=== PATIENT | male | born 1945 | race Caucasian/White ===

== ENCOUNTER → 2020-06-06 10:56 | Outpatient (BNVA) | payer MEDICARE, BC, SELFPAY | PROVIDERS: PCP Internal Medicine; Referring Provider Internal Medicine; Visit Provider Hospitalist | DX: J44.9 Chronic obstructive pulmonary disease, unspecified (principal); J31.0 Chronic rhinitis | CPT/HCPCS: 99212 ==

== ENCOUNTER 2021-05-26 08:11 | Outpatient (REF) | payer MEDICARE, BC, SELFPAY ==
--- NOTE | 2021-05-26 17:12 | PFT_ITS ---
FLOWS: FEV1 101% of predicted at 3.19 L. FVC 108% of predicted at 4.71 L. FEV1 to FVC ratio of 0.68. No bronchodilator response except in small to medium airways. LUNG VOLUMES: Total lung capacity 111% of predicted at 8.10 L. Residual volume 142% of predicted at 3.75 L. Slow vital capacity 94% of predicted at 4.35 L. Expiratory reserve volume 37% of predicted at 0.48 L. Diffusion capacity is mildly decreased. IMPRESSION: Mild obstructive ventilatory defect with no bronchodilator response except in small to medium airways. Increased residual volume suggests air trapping. Decreased expiratory reserve volume suggests extrathoracic restriction likely secondary to abdominal obesity. Decreased diffusion capacity suggests emphysema. MD GURWINDER Candelaria/MODL / [id number]
== END 2021-05-26 08:12 | disposition home or self-care (01) ==
LOC: HO.RESP 08:11
PROVIDERS: PCP Internal Medicine; Visit Provider Hospitalist
DX: J44.9 Chronic obstructive pulmonary disease, unspecified (principal)
CPT/HCPCS: 94060; 94727; 94729

== ENCOUNTER → 2021-06-06 08:53 | Outpatient (BNVA) | payer MEDICARE, BC, SELFPAY | PROVIDERS: PCP Internal Medicine; Visit Provider Hospitalist | DX: J44.9 Chronic obstructive pulmonary disease, unspecified (principal); J31.0 Chronic rhinitis; K21.9 Gastro-esophageal reflux disease without esophagitis; R05.9 Cough, unspecified | CPT/HCPCS: 99212 ==

== ENCOUNTER → 2022-06-08 09:21 | Outpatient (BNVA) | payer MEDICARE, BC, SELFPAY | PROVIDERS: PCP Internal Medicine; Visit Provider Hospitalist | DX: J44.9 Chronic obstructive pulmonary disease, unspecified (principal); J31.0 Chronic rhinitis; K21.9 Gastro-esophageal reflux disease without esophagitis; J01.90 Acute sinusitis, unspecified | CPT/HCPCS: 99212 ==

== ENCOUNTER 2022-11-26 10:34 | Outpatient (REF) | payer MEDICARE, BC, SELFPAY ==
--- NOTE | ~2022-11-26 | XR_ITS ---
EXAMINATION: XR chest 2V CLINICAL INFORMATION: Reason for Exam J44.9 - Chronic obstructive pulmonary disease, unspecified COMPARISON: None TECHNIQUE: 2 views of the chest FINDINGS: Clear lungs. No pneumothorax or pleural effusion. Normal cardiomediastinal silhouette. XR/XR chest 2V Impression: No acute cardiopulmonary findings.
== END 2022-11-26 10:35 | disposition home or self-care (01) ==
LOC: HO.XRAY 10:34
PROVIDERS: PCP Internal Medicine; Visit Provider Hospitalist
DX: J44.9 Chronic obstructive pulmonary disease, unspecified (principal)
CPT/HCPCS: 71046

== ENCOUNTER → 2022-12-01 08:54 | Outpatient (BNVA) | payer MEDICARE, BC, SELFPAY | PROVIDERS: PCP Internal Medicine; Visit Provider Hospitalist | DX: J44.9 Chronic obstructive pulmonary disease, unspecified (principal); J31.0 Chronic rhinitis; R05.9 Cough, unspecified; K21.9 Gastro-esophageal reflux disease without esophagitis; Z23 Encounter for immunization | CPT/HCPCS: 90471; 90677; 99212 ==

== ENCOUNTER 2023-12-22 08:34 | Outpatient (AMB) | payer MEDICARE, BC, SELFPAY ==
--- NOTE | 2023-12-22 08:41 | MHC.OFFVIS ---
Vital Signs 12/22/23 08:42 Height 5 ft 11 in Weight 205 lb BMI 28.6 BP 120/60 Blood Pressure Location Lt brachial Position Sitting Pulse 72 Pulse Source Pulse Oximeter Pulse Oximetry (%) 98 Oxygen Delivery Method Room Air Intake Visit Reasons: asthma [facility] Consultant Required: No Allergies No Known Allergies Allergy (Verified 12/22/23 08:41) HPI Comments Details: The patient is a 78-year-old gentleman known history of COPD and chronic bronchitis. He has been doing phenomenally well. About a month ago he did develop a cough productive in nature with yellow sputum. It lasted for about 5-7 days. He did not take any medications for for the symptoms. The symptoms did improve by themselves. Right now he is not taking any respiratory inhalers. We did go back and look at previous x-rays that he had back in about a year ago. Didn't have any acute disease. Patient is without any other complaints period we talked about repeating an x-ray during his next visit. 06/07/2020 the patient is here for pulmonary follow-up visit. He continues to do very well. His shortness of breath and wheezing has improved dramatically. However he still has a cough which is a daily basis. Usually is nonproductive in nature. Does not seem to affect his quality of life at this time. He continues to use his nasal therapy. Usually the cough is worse in the morning. We did review his last chest x-ray demonstrating no acute disease. This x-ray was done at [facility]. Otherwise patient is without any other complaints. Will plan to follow-up in 1 years time with pulmonary function studies. 06/06/2021 the patient is here for a pulmonary follow-up visit. He started developing worsening cough which appears to be congested at times. Mqjc-ii-shyuvlnt severity. He has had to use his short-acting beta agonists couple times a week with good response. He did undergo pulmonary function studies demonstrating mild COPD. The patient had been on a very aggressive respiratory regimen in the past. But, then he improved and he was able to stop a lot of his maintenance medications. I believe is reasonable for him to start a maintenance inhaler at this time. 06/08/2022 the patient is here for a pulmonary follow-up visit. The patient had been doing well. Although recently he started developing worsening nasal congestion and postnasal drip along with cough. He has also noticed some yellow sputum. He is not sure if it is from the sinuses from the lungs. His lungs actually sound well. Recently he was prescribed Augmentin by ENT. He denies any significant improvement. He was told that he had any bacterial infection did not need any additional therapies. Therefore, will go ahead and place him on doxycycline to treat for other potential bacterial organisms that may have not been treated with the Augmentin. Patient also will benefit from nasal therapy. He does have postnasal drip. For the most part is thin secretions. This will improve with the use of ipratropium. However he knows that the mucus gets too thick needs to back off on the medication. He needs to have an x-ray has not had 1 in some time. His lungs sound clear he is responding well to the current respiratory therapy. Because of the coughing he is complaining of muscle spasms that he develops. He responded well to back of her in the past. did request a prescription. Therefore, I did let him know that I have prescribed 1 more time due to the fact that he is having they cough related muscle spasms but after that he should have it done all prescribed by his primary care doctor to avoid medication interaction and or polypharmacy. 12/01/2022 The patient is here for a pulmonary follow up visit. The patient has been doing well from a respiratory standpoint. HAs not had to use his inhalers at all. No resent exacerbations and has not required any antibiotics or prednisone for the last 6 months. He did have a CXR personally reviewed by me, demonstrating hyperexpanded lungs and a hiatal hernia suspected. We talked about the importance of the reflux diet and sleeping elevated to make sure to minimize GERD. The CXR is not officially read, if any any other findings I will let the patient know. 12/22/2023 the patient is here for a pulmonary follow-up visit. He is having significant allergies at this time. Mainly due to the springtime. Respiratory mauro he is doing well he does have his inhalers he does use them as needed. The patient did have a chest x-ray back in October 2022 demonstrating no acute disease which is reassuring. He is complaining of lower extremity edema. Seems to be more swollen the last week. Bilaterally. The patient had been on diuretics before but taken off because of hypernatremia. I will given 3 days' worth and then will recheck his sodium afterwards. In addition to that he has been dealing with skin cancer. He is status post surgical resection and also a brief course of radiation to make sure. [facility] Medical History (Updated 12/22/23 @ 22:18 by Miguel A Aldana MD) Lower extremity edema GERD (gastroesophageal reflux disease) Chronic rhinitis Cough COPD (chronic obstructive pulmonary disease) Social History (Updated 06/06/21 @ 09:04 by EPIFANIO Perez) Patient Tobacco Use Status: Never used Tobacco Review of Systems Const Denies night sweats ENT Denies change in voice, Denies lip swelling, Denies mouth pain, Reports nasal congestion, Denies nasal discharge, Reports post nasal drip, Denies sinus pressure and Denies tongue swelling Card Denies chest pain Resp Denies change in phlegm color, Reports cough and Denies wheezing GI Reports dyspepsia and Reports heartburn Musc Reports back pain Neuro Denies Neuro-related abnormal movements Psych Denies no additional complaints Luis/Lymph Denies easy bleeding and Denies lymphadenopathy Aller/Immun Denies lip swelling, Denies tongue swelling and Denies wheezing Physical Exam Vital Signs: Last Vital Signs Pulse 72 12/22/23 08:42 BP 120/60 12/22/23 08:42 Pulse Ox 98 12/22/23 08:42 Oxygen Delivery Method Room Air 12/22/23 08:42 BMI result Body Mass Index 28.6 Const General: alert HEENT General nose exam: Abnormal mucous membranes and turbinates present erythematous and Nasal discharge present clear Neck Neck: Yes normal visual inspection, Yes full ROM and Yes no lymphadenopathy Chest Chest palpation & inspection: normal inspection of the chest Resp Auscultation: diminished lung sounds Cardio Rate: regular rate Rhythm: regular rhythm Heart sounds: S1 normal heart sound present and S2 normal heart sound present GI Palpation (GI): Soft to palpation and nontender Auscultation: normal bowel sounds Skin General skin exam: rashes and/or lesions noted Assessment & Plan Assessment & Plan (1) COPD (chronic obstructive pulmonary disease): Code(s): J44.9 - Chronic obstructive pulmonary disease, unspecified Category: Medical Qualifiers: COPD type: chronic bronchitis Chronic bronchitis type: simple Qualified Code(s): J41.0 - Simple chronic bronchitis Plan: Short-acting beta agonist as needed (2) Cough: Comment: Likely upper airway cough syndrome Code(s): R05 - Cough Category: Medical Qualifiers: Cough type: chronic Qualified Code(s): R05.3 - Chronic cough (3) Chronic rhinitis: Code(s): J31.0 - Chronic rhinitis Category: Medical Plan: Nasal therapy Nasal rinsing Allergy therapy (4) GERD (gastroesophageal reflux disease): Code(s): K21.9 - Gastro-esophageal reflux disease without esophagitis Category: Medical Qualifiers: Esophagitis presence: without esophagitis Qualified Code(s): K21.9 - Gastro-esophageal reflux disease without esophagitis (5) Lower extremity edema: Code(s): R60.0 - Localized edema Category: Medical Plan continue Dulera CAIO as needed fluticasone nasal spray as needed Ipratropium nasal spray as needed start singulair lasix x 3 days only recheck labs F/U 10-12 months Orders: Orders Complete Blood Count Auto Diff Today J44.9 - Chronic obstructive pulmonary disease, unspecified, R05 - Cough Immunoglobulin E Today J44.9 - Chronic obstructive pulmonary disease, unspecified, R05 - Cough Basic Metabolic Panel Today J44.9 - Chronic obstructive pulmonary disease, unspecified, R05 - Cough Medications: New furosemide (Lasix) 20 mg PO DAILY 3 tabs 0RF 3 days montelukast (Singulair) 10 mg PO BEDTIME 30 tabs 11RF 30 days J45.909 - Unspecified asthma, uncomplicated Coding Level of Care Code Est Pt Level 4 (79190) Diagnoses Simple chronic bronchitis J41.0 COPD type: chronic bronchitis Chronic bronchitis type: simple Chronic cough R05.3 Cough type: chronic Chronic rhinitis J31.0 Gastroesophageal reflux disease without esophagitis K21.9 Esophagitis presence: without esophagitis Lower extremity edema R60.0 Time Spent (min) 16
[2023-12-22 08:42] VITALS: BP 120/60; PULSE 72; O2SAT 98; BMI 28.6
== END 2023-12-22 09:00 | disposition home or self-care (01) ==
PROVIDERS: PCP Internal Medicine; Visit Provider Hospitalist
DX: J41.0 Simple chronic bronchitis (principal); J31.0 Chronic rhinitis; K21.9 Gastro-esophageal reflux disease without esophagitis; R60.0 Localized edema
CPT/HCPCS: 99214

== ENCOUNTER → 2023-12-22 08:34 | Outpatient (BNVA) | payer MEDICARE, BC, SELFPAY | PROVIDERS: PCP Internal Medicine; Visit Provider Hospitalist | DX: J41.0 Simple chronic bronchitis (principal); J31.0 Chronic rhinitis; K21.9 Gastro-esophageal reflux disease without esophagitis; R60.0 Localized edema | CPT/HCPCS: 99212 ==

== ENCOUNTER 2024-06-23 10:57 | Outpatient (REF) | payer MEDICARE, BC, SELFPAY ==
[2024-06-23 11:15] LABS: MANUAL DIFF FLAG NO
[2024-06-23 11:41] LABS: Basophils Absolute Auto 0.1 X10*3/uL (0.0-0.2); Basophils Percent Auto 0.7 % (0-2); Eosinophils Absolute Auto 0.1 X10*3/uL (0.0-0.4); Hematocrit 43.8 % (42.0-52.0); Hemoglobin 15.5 g/dl (14.0-18.0); Imm Gran Abs Auto 0.02 X10*3/uL (0.00-0.03); Imm Gran Pct Auto 0.3 % (0.0-0.4); Lymphocytes Absolute Auto 0.7 X10*3/uL (1.2-4.9); Lymphocytes Percent Auto 10.7 % (20-40); Mean Corpuscular HGB Conc 35.4 g/dl (31.0-36.0); Mean Corpuscular Volume 96.1 fL (80.0-98.0); Mean Platelet Volume 8.6 fL (9.4-12.4); Monocytes Absolute Auto 0.8 X10*3/uL (0.1-1.2); Monocytes Percent Auto 11.3 % (2-11); Neutrophils Absolute Auto 5.3 x10*3/uL (2.0-8.3); Platelet Count 239 X10*3/uL (160-400); Red Blood Count 4.56 X10*6/uL (4.60-5.80); Red Cell Distribution Width 12.2 % (11.0-16.0); White Blood Count 6.9 X10*3/uL (4.8-10.8)
[2024-06-23 12:09] LABS: Anion Gap 13 (12-20); Blood Urea Nitrogen 8 mg/dL (9-16); Calcium 9.3 mg/dL (8.4-10.2); Carbon Dioxide 28 mmol/L (22-29); Chloride 98 mmol/L (96-108); Estimated Glomerular Filt Rate > 60; Glucose Random 105 mg/dL (60-115); Potassium 3.8 mmol/L (3.3-5.1); Sodium 135 mmol/L (135-145)
[2024-06-27 02:08] LABS: Immunoglobulin E 55 kU/L (<OR=114)
== END 2024-06-23 10:58 | disposition home or self-care (01) ==
LOC: HO.LAB 10:57
PROVIDERS: PCP Internal Medicine; Visit Provider Hospitalist
DX: J44.9 Chronic obstructive pulmonary disease, unspecified (principal); R05.9 Cough, unspecified
CPT/HCPCS: 36415; 80048; 82785; 85025

== ENCOUNTER → 2024-06-26 08:38 | Outpatient (BNVA) | payer MEDICARE, BC, SELFPAY | PROVIDERS: PCP Internal Medicine; Visit Provider Hospitalist | DX: J41.0 Simple chronic bronchitis (principal); J31.0 Chronic rhinitis; K21.9 Gastro-esophageal reflux disease without esophagitis; R60.0 Localized edema | CPT/HCPCS: 99212 ==

== ENCOUNTER 2024-06-26 08:45 | Outpatient (AMB) | payer MEDICARE, BC, SELFPAY ==
[2024-06-26 08:47] VITALS: BP 162/62; PULSE 84; O2SAT 97
--- NOTE | 2024-06-26 08:47 | A.OFFVIS_ITS ---
Vital Signs 06/26/24 08:47 Weight 200 lb 9.93 oz BP 162/62 H Blood Pressure Location Rt brachial Position Sitting Pulse 84 Pulse Source Pulse Oximeter Pulse Oximetry (%) 97 Oxygen Delivery Method Room Air Intake Visit Reasons: Asthma Allergies No Known Allergies Allergy (Verified 06/26/24 08:51) Medication List - Last Reconciled 06/26/24 by Pinky Naik LPN albuterol sulfate 90 mcg/actuation (ProAir HFA) 2 puffs inhalation Q6H PRN amlodipine 7.5 mg PO DAILY flu vac qv 2019(18yr up)rc(PF) IM fluticasone propionate 50 mcg/actuation 2 sprays intranasal DAILY 30 days losartan 100 mg PO DAILY melatonin 10 mg PO BEDTIME PRN montelukast (Singulair) 10 mg PO BEDTIME 30 days HPI Comments Details: The patient is a 79-year-old gentleman known history of COPD and chronic bronchitis. He has been doing phenomenally well. About a month ago he did develop a cough productive in nature with yellow sputum. It lasted for about 5-7 days. He did not take any medications for for the symptoms. The symptoms did improve by themselves. Right now he is not taking any respiratory inhalers. We did go back and look at previous x-rays that he had back in about a year ago. Didn't have any acute disease. Patient is without any other complaints period we talked about repeating an x-ray during his next visit. 06/07/2020 the patient is here for pulmonary follow-up visit. He continues to do very well. His shortness of breath and wheezing has improved dramatically. However he still has a cough which is a daily basis. Usually is nonproductive in nature. Does not seem to affect his quality of life at this time. He continues to use his nasal therapy. Usually the cough is worse in the morning. We did review his last chest x-ray demonstrating no acute disease. This x-ray was done at [facility]. Otherwise patient is without any other complaints. Will plan to follow-up in 1 years time with pulmonary function studies. 06/06/2021 the patient is here for a pulmonary follow-up visit. He started developing worsening cough which appears to be congested at times. Naxy-wz-ieayqomr severity. He has had to use his short-acting beta agonists couple times a week with good response. He did undergo pulmonary function studies demonstrating mild COPD. The patient had been on a very aggressive respiratory regimen in the past. But, then he improved and he was able to stop a lot of his maintenance medications. I believe is reasonable for him to start a maintenance inhaler at this time. 06/08/2022 the patient is here for a pulmonary follow-up visit. The patient had been doing well. Although recently he started developing worsening nasal congestion and postnasal drip along with cough. He has also noticed some yellow sputum. He is not sure if it is from the sinuses from the lungs. His lungs actually sound well. Recently he was prescribed Augmentin by ENT. He denies any significant improvement. He was told that he had any bacterial infection did not need any additional therapies. Therefore, will go ahead and place him on doxycycline to treat for other potential bacterial organisms that may have not been treated with the Augmentin. Patient also will benefit from nasal therapy. He does have postnasal drip. For the most part is thin secretions. This will improve with the use of ipratropium. However he knows th at the mucus gets too thick needs to back off on the medication. He needs to have an x-ray has not had 1 in some time. His lungs sound clear he is responding well to the current respiratory therapy. Because of the coughing he is complaining of muscle spasms that he develops. He responded well to back of her in the past. did request a prescription. Therefore, I did let him know that I have prescribed 1 more time due to the fact that he is having they cough related muscle spasms but after that he should have it done all prescribed by his primary care doctor to avoid medication interaction and or polypharmacy. 12/01/2022 The patient is here for a pulmonary follow up visit. The patient has been doing well from a respiratory standpoint. HAs not had to use his inhalers at all. No resent exacerbations and has not required any antibiotics or prednisone for the last 6 months. He did have a CXR personally reviewed by me, demonstrating hyperexpanded lungs and a hiatal hernia suspected. We talked about the importance of the reflux diet and sleeping elevated to make sure to minimize GERD. The CXR is not officially read, if any any other findings I will let the patient know. 12/22/2023 the patient is here for a pulmonary follow-up visit. He is having significant allergies at this time. Mainly due to the springtime. Respiratory mauro he is doing well he does have his inhalers he does use them as needed. The patient did have a chest x-ray back in October 2022 demonstrating no acute disease which is reassuring. He is complaining of lower extremity edema. Seems to be more swollen the last week. Bilaterally. The patient had been on diuretics before but taken off because of hypernatremia. I will given 3 days' worth and then will recheck his sodium afterwards. In addition to that he has been dealing with skin cancer. He is status post surgical resection and also a brief course of radiation to make sure. 06/26/2024 the patient is here for a pulmonary follow-up visit. The patient has been feeling better. He did call in several weeks ago worsening respiratory symptoms cough chest congestion. He was treated with a Z-Michael in addition to a Medrol pack. Now he is back to the baseline. He had been using nebulizer 2 but now is no longer using it. Feel that he is back to his baseline. He did have blood work done including a CBC with a decrease lymphocyte count. This may be related to a whenever viral syndrome he was having may have affected his lymphocytes. This should be rechecked at some point. In addition to that were waiting for his IgE levels to come back. He had an x-ray back in 2022 which is reassuring. His respiratory exam is normal at this time so no additional imaging isn't required. Although if he starts developing worsening symptoms he will come in for an x-ray. [facility] Medical History (Updated 12/22/23 @ 22:18 by Miguel A Aldana MD) Lower extremity edema GERD (gastroesophageal reflux disease) Chronic rhinitis Cough COPD (chronic obstructive pulmonary disease) Social History (Updated 06/06/21 @ 09:04 by EPIFANIO Perez) Patient Tobacco Use Status: Never used Tobacco Review of Systems Const Denies night sweats ENT Denies change in voice, Denies lip swelling, Denies mouth pain, Reports nasal congestion, Denies nasal discharge, Reports post nasal drip, Denies sinus pressure and Denies tongue swelling Card Denies chest pain Resp Denies change in phlegm color, Reports cough and Denies wheezing GI Reports dyspepsia and Reports heartburn Musc Reports back pain Neuro Denies Neuro-related abnormal movements Psych Denies no additional complaints Luis/Lymph Denies easy bleeding and Denies lymphadenopathy Aller/Immun Denies lip swelling, Denies tongue swelling and Denies wheezing Physical Exam Vital Signs: Last Vital Signs Pulse 84 06/26/24 08:47 BP 162/62 H 06/26/24 08:47 Pulse Ox 97 06/26/24 08:47 Oxygen Delivery Method Room Air 06/26/24 08:47 Const General: alert HEENT General nose exam: Abnormal mucous membranes and turbinates present erythematous and Nasal discharge present clear Neck Neck: Yes normal visual inspection, Yes full ROM and Yes no lymphadenopathy Chest Chest palpation & inspection: normal inspection of the chest Resp Auscultation: diminished lung sounds Cardio Rate: regular rate Rhythm: regular rhythm Heart sounds: S1 normal heart sound present and S2 normal heart sound present GI Palpation (GI): Soft to palpation and nontender Auscultation: normal bowel sounds Skin General skin exam: rashes and/or lesions noted Assessment & Plan Assessment & Plan (1) COPD (chronic obstructive pulmonary disease): Code(s): J44.9 - Chronic obstructive pulmonary disease, unspecified Category: Medical Qualifiers: COPD type: chronic bronchitis Chronic bronchitis type: simple Qualified Code(s): J41.0 - Simple chronic bronchitis Plan: Short-acting beta agonist as needed (2) Cough: Comment: Likely upper airway cough syndrome Code(s): R05 - Cough Category: Medical Qualifiers: Cough type: chronic Qualified Code(s): R05.3 - Chronic cough (3) Chronic rhinitis: Code(s): J31.0 - Chronic rhinitis Category: Medical Plan: Nasal therapy Nasal rinsing Allergy therapy (4) GERD (gastroesophageal reflux disease): Code(s): K21.9 - Gastro-esophageal reflux disease without esophagitis Category: Medical Qualifiers: Esophagitis presence: without esophagitis Qualified Code(s): K21.9 - Gastro-esophageal reflux disease without esophagitis (5) Lower extremity edema: Code(s): R60.0 - Localized edema Category: Medical Plan continue Dulera CAIO as needed fluticasone nasal spray as needed Ipratropium nasal spray as needed singulair F/U 10-12 months Coding Level of Care Code Est Pt Level 4 (27910) Diagnoses Simple chronic bronchitis J41.0 COPD type: chronic bronchitis Chronic bronchitis type: simple Chronic cough R05.3 Cough type: chronic Chronic rhinitis J31.0 Gastroesophageal reflux disease without esophagitis K21.9 Esophagitis presence: without esophagitis Lower extremity edema R60.0 Time Spent (min) 16
== END 2024-06-26 09:09 | disposition home or self-care (01) ==
PROVIDERS: PCP Internal Medicine; Visit Provider Hospitalist
DX: J41.0 Simple chronic bronchitis (principal); J31.0 Chronic rhinitis; K21.9 Gastro-esophageal reflux disease without esophagitis; R60.0 Localized edema
CPT/HCPCS: 99214

== ENCOUNTER 2024-12-14 08:48 | Outpatient (AMB) | payer MEDICARE, BC, SELFPAY ==
--- NOTE | 2024-12-14 09:00 | A.OFFVIS_ITS ---
Vital Signs 12/14/24 09:01 Height 5 ft 11 in Weight 210 lb 8.663 oz BMI 29.4 BP 140/68 H Blood Pressure Location Lt brachial Position Sitting Pulse 78 Pulse Source Pulse Oximeter Pulse Oximetry (%) 97 Oxygen Delivery Method Room Air Intake Visit Reasons: Asthma Cereal Maker Required: No Accompanied by: Self / Same As Patient Allergies No Known Allergies Allergy (Verified 12/14/24 09:03) HPI Comments Details: The patient is a 79-year-old gentleman known history of COPD and chronic bronchitis. He has been doing phenomenally well. About a month ago he did develop a cough productive in nature with yellow sputum. It lasted for about 5-7 days. He did not take any medications for for the symptoms. The symptoms did improve by themselves. Right now he is not taking any respiratory inhalers. We did go back and look at previous x-rays that he had back in about a year ago. Didn't have any acute disease. Patient is without any other complaints period we talked about repeating an x-ray during his next visit. 12/22/2023 the patient is here for a pulmonary follow-up visit. He is having significant allergies at this time. Mainly due to the springtime. Respiratory mauro he is doing well he does have his inhalers he does use them as needed. The patient did have a chest x-ray back in October 2022 demonstrating no acute disease which is reassuring. He is complaining of lower extremity edema. Seems to be more swollen the last week. Bilaterally. The patient had been on diuretics before but taken off because of hypernatremia. I will given 3 days' worth and then will recheck his sodium afterwards. In addition to that he has been dealing with skin cancer. He is status post surgical resection and also a brief course of radiation to make sure. 06/26/2024 the patient is here for a pulmonary follow-up visit. The patient has been feeling better. He did call in several weeks ago worsening respiratory symptoms cough chest congestion. He was treated with a Z-Michael in addition to a Medrol pack. Now he is back to the baseline. He had been using nebulizer 2 but now is no longer using it. Feel that he is back to his baseline. He did have blood work done including a CBC with a decrease lymphocyte count. This may be related to a whenever viral syndrome he was having may have affected his lymphocytes. This should be rechecked at some point. In addition to that were waiting for his IgE levels to come back. He had an x-ray back in 2022 which is reassuring. His respiratory exam is normal at this time so no additional imaging isn't required. Although if he starts developing worsening symptoms he will come in for an x-ray. 12/14/2024 the patient is here for pulmonary follow-up visit. The patient overall has been doing well from a respiratory status. He continues uses allergy medicines and also nasal sprays because of the allergy season right now. But overall he has been doing well. Denies any respiratory limitations. He does use respiratory inhalers as prescribed. Has not required any prednisone. Typically does not use his rescue inhaler. He has been a little more the conditions and he has not been exercising as much. He is going to start doing so. Although right now is major complaint of significant lower extremity edema. Recently had a visit with his padded products inspector trimmer in his Norvasc was increased from 5 mg 10 mg. Explained to him that this is something that needs to talk to his padded products inspector trimmer because medications likely worsening the lower extremity edema. He may need to go back to the lower dose. Therefore the patient will have an x-ray before his next visit and will follow-up in a year's time. [facility] Medical History (Updated 12/22/23 @ 22:18 by Miguel A Aldana MD) Lower extremity edema GERD (gastroesophageal reflux disease) Chronic rhinitis Cough COPD (chronic obstructive pulmonary disease) Social History Patient Tobacco Use Status: Never used Tobacco Review of Systems Const Denies chills, Denies fatigue, Denies fever(s), Denies weight gain and Denies weight loss ENT Denies dizziness, Denies lip swelling and Denies tongue swelling Card Denies chest pain, Reports leg edema, Denies lightheadedness, Denies palpitations, Denies dyspnea on exertion, Denies orthopnea and Denies other Resp Reports cough, Denies dyspnea on exertion and Denies wheezing GI Denies hematochezia and Denies change in stool character Musc Denies abnormal gait, Denies muscle weakness, Denies numbness, Denies radiating pain into limb and Denies tingling Neuro Denies abnormal gait, Denies dizziness, Denies numbness and Denies tingling Psych Denies no additional complaints Endo Denies fatigue and Denies palpitations Luis/Lymph Denies easy bleeding and Denies lymphadenopathy Aller/Immun Denies lip swelling, Denies tongue swelling and Denies wheezing Physical Exam Vital Signs: Last Vital Signs Pulse 78 12/14/24 09:01 BP 140/68 H 12/14/24 09:01 Pulse Ox 97 12/14/24 09:01 Oxygen Delivery Method Room Air 12/14/24 09:01 BMI result Body Mass Index 29.4 Const General: alert HEENT General nose exam: Abnormal mucous membranes and turbinates present erythematous and Nasal discharge present clear Neck Neck: Yes normal visual inspection, Yes full ROM and Yes no lymphadenopathy Chest Chest palpation & inspection: normal inspection of the chest Resp Auscultation: diminished lung sounds Cardio Rate: regular rate Rhythm: regular rhythm Heart sounds: S1 normal heart sound present and S2 normal heart sound present GI Palpation (GI): Soft to palpation and nontender Auscultation: normal bowel sounds Skin General skin exam: no rashes or lesions noted Extrem General: No clubbing, No cyanosis and Yes edema Assessment & Plan Assessment & Plan (1) COPD (chronic obstructive pulmonary disease): Code(s): J44.9 - Chronic obstructive pulmonary disease, unspecified Category: Medical Qualifiers: COPD type: chronic bronchitis Chronic bronchitis type: simple Qualified Code(s): J41.0 - Simple chronic bronchitis Plan: Short-acting beta agonist as needed (2) Cough: Comment: Likely upper airway cough syndrome Code(s): R05 - Cough Category: Medical Qualifiers: Cough type: chronic Qualified Code(s): R05.3 - Chronic cough (3) Chronic rhinitis: Code(s): J31.0 - Chronic rhinitis Category: Medical Plan: Nasal therapy Nasal rinsing Allergy therapy (4) GERD (gastroesophageal reflux disease): Code(s): K21.9 - Gastro-esophageal reflux disease without esophagitis Category: Medical Qualifiers: Esophagitis presence: without esophagitis Qualified Code(s): K21.9 - Gastro-esophageal reflux disease without esophagitis (5) Lower extremity edema: Code(s): R60.0 - Localized edema Category: Medical Plan continue Dulera CAIO as needed fluticasone nasal spray as needed Ipratropium nasal spray as needed singulair d/w PCP/nephrology regarding CCB side effect F/U 10-12 months Coding Level of Care Code Est Pt Level 4 (55319) Diagnoses Simple chronic bronchitis J41.0 COPD type: chronic bronchitis Chronic bronchitis type: simple Chronic cough R05.3 Cough type: chronic Chronic rhinitis J31.0 Gastroesophageal reflux disease without esophagitis K21.9 Esophagitis presence: without esophagitis Lower extremity edema R60.0 Time Spent (min) 16
[2024-12-14 09:01] VITALS: BP 140/68; PULSE 78; O2SAT 97; BMI 29.4
--- OUTSIDE RECORDS SUMMARY | 2024-12-14 09:14 | XMS_ITS | Clinical Summary ---
Author Organization [facility] Address [address] [place] [address] Phone Care Team Providers Care Sleeve Baster Name Role Phone Otoniel Gusman MD Primary Care Provider [phone] Allergies Active Allergy Reactions Criticality Noted Date Comments Cat Dander 03/12/2023 Grass Pollen Standardized Ext 2022 Medications losartan (COZAAR) 100 MG tablet Take 100 mg by mouth 1 (one) time each day Active celecoxib (CeleBREX) 200 MG capsule Take 200 mg by mouth if needed Active melatonin 3 MG tablet Take 1 mg by mouth every night Active ibuprofen (ADVIL,MOTRIN) 200 MG tablet Take 200 mg by mouth every 6 (six) hours if needed for mild pain Active amLODIPine (NORVASC) 10 MG tablet Take 1 tablet (10 mg total) by mouth 1 (one) time each day 90 tablet 3 5 02/14/20 25 Active amLODIPine (NORVASC) 5 MG tablet TAKE 1.5 TABLET (7.5 MG) BY MOUTH DAILY 135 tablet 3 5 Active amLODIPine (NORVASC) 5 MG tablet TAKE 1 TABLET BY MOUTH 1 TIME EACH DAY. 90 tablet 3 4 11/16/19 25 Discontinu ed(Reorder (does not appear on AVS)) Active Problems Problem Noted Date Diagnosed Date Hypo-osmolality and hyponatremia 10/28/2021 Hypertension 10/28/2021 Allergic rhinitis 10/26/2017 History of pneumonia 10/26/2017 Overview (05/02/2024): Replacing diagnoses that were inactivated after the 05/02/24 Regulatory Import Asthma 06/11/2017 Chronic obstructive pulmonary disease 06/11/2017 Bronchiectasis 05/09/2017 Encounters Date Type Department Care Team Description 11/17/2024 Refill [facility] [address] [address] Mesfin Sarah MD 11/15/2024 1:30 PM EDT Office Visit [facility] [address] [address] Mesfin Sarah MD Hypo-osmolality and hyponatremia (Primary Dx); Hypokalemia; Hypertension; Chronic kidney disease, not otherwise specified 11/02/2024 Orders Only [facility] [address] [address] Mesfin Sarah MD Hypo-osmolality and hyponatremia from Last 3 Months Immunizations Immunization Administration Dates Next Due Influenza Split High Dose Preservative Free IM 1 08/27/2018 Influenza Vaccine, Quadrivalent, Adjuvanted 04/02 Influenza, Recombinant, Quadrivalent, Pf 020 Influenza, Trivalent, Adjuvanted 05/26/2018 Family History Medical History Relation Comments Diabetes Father Hypertension Mother Relation Status Comments Father Mother Social History Tobacco Use Types Packs/Day Years Used Date Smoking Tobacco: Never Passive Smoke Exposure: Never Smokeless Tobacco: Never Tobacco Cessation:Counseling Given: No Alcohol Use Standard Drinks/Week Comments Yes 0 (1 standard drink = 0.6 oz pur e alcohol) Sex and Gender Information Value Date Recorded Sex Assigned at Not on file Legal Sex Male 1:55 PM EST Gender Identity Not on file Sexual Orientation Not on file Last Filed Vital Signs Vital Sign Reading Time Taken Comments Blood Pressure 139/70 11/15/2024 1:17 PM EDT Pulse 84 11/15/2024 1:17 PM EDT Temperature - - Respiratory Rate - - Oxygen Saturation 98% 03/12/2023 9:55 AM EDT Inhaled Oxygen Concentration - - Weight 93.9 kg (207 lb) 11/15/2024 1:17 PM EDT Height - - Body Mass Index - - Plan of Treatment Upcoming Encounters Date Type Department Care Team (Late st Contact Info) Description 11/21/2025 1:00 PM EDT [facility] Visit [facility] [address] [address] Mesfin Sarah MD [address] [phone] Health Maintenance Due Date Last Done Comments Pneumococcal Vaccine: 50+ Years (1 of 2 - PCV) 1964 Influenza Vaccine (Season Ended) 2025 04/14/2022, 2020, 06/27/2019, Additional history exists Hepatitis B Vaccine Aged Out No longe r eligible based on patient's age to complete this topic Procedures Procedure Name Priority Date/Time Associated Diagnosis Comments RENAL FUNCTION PANEL Routine 11/10/2024 7:20 AM EDT Hypo-osmolality and hyponatremia from Last 3 Months Results * (ABNORMAL) Renal function panel (11/10/2024 7:20 AM EDT) Glucose 93 70 - 99 mg/dL [facility] BUN 9 8 - 27 mg/dL [facility] Creatinine 0.96 0.76 - 1.27 mg/dL [facility] eGFR CKD-EPI CR 2020 80 >59 mL/min/1.7 3 [facility] BUN/Creatinine Ratio 9(L) 10 - 24 [facility] Sodium 135 134 - 144 mmol/L [facility] Potassium 4.4 3.5 - 5.2 mmol/L [facility] Chloride 94(L) 96 - 106 mmol/L [facility] Bicarbonate (CO2) 23 20 - 29 mmol/L [facility] Calcium 9.4 8.6 - 10.2 mg/dL [facility] Albumin 4.6 3.8 - 4.8 g/dL [facility] Phosphorus 3.3 2.8 - 4.1 mg/dL [facility] Blood (Blood, Venous) 11/10/2024 7:20 AM EDT 11/10/2024 us Mesfin Sarah MD LAB BLOOD ORDERABLES Final Resul t [facility] [address] [place] [address] from Last 3 Months Insurance Medicare [facility] Medicare [facility] Care Teams Sleeve Baster Relationship Specialty Start Date End Date Otoniel Gusman MD [address] [place] [address] PCP - General Internal Medicine 10/08/21
== END 2024-12-14 09:26 | disposition home or self-care (01) ==
LOC: HO.HPS 08:49
PROVIDERS: PCP Internal Medicine; Visit Provider Hospitalist
DX: J41.0 Simple chronic bronchitis (principal); R05.3 Chronic cough; J31.0 Chronic rhinitis; K21.9 Gastro-esophageal reflux disease without esophagitis; R60.0 Localized edema
CPT/HCPCS: 99214

== ENCOUNTER → 2024-12-14 08:48 | Outpatient (BNVA) | payer MEDICARE, BC, SELFPAY | PROVIDERS: PCP Internal Medicine; Visit Provider Hospitalist | DX: J41.0 Simple chronic bronchitis (principal); J31.0 Chronic rhinitis; R60.0 Localized edema; K21.9 Gastro-esophageal reflux disease without esophagitis | CPT/HCPCS: 99212 ==

== ENCOUNTER 2024-12-22 10:10 | Outpatient (AMB) | payer MEDICARE, BC, SELFPAY ==
--- OUTSIDE RECORDS SUMMARY | 2024-12-22 10:25 | XMS_ITS | Encounter Summary ---
Author Organization [facility] Address [address] [facility] [address] [place] [address] Phone Care Team Providers Care Supervisor Loading Name Role Phone Otoniel Gusman MD Primary Care Provider Encounter Details Date Type Department Care Team (Late st Contact Info) Description 12/19/2024 Telephone [facility] [address] [facility] [address] [place] [address] Yesica Knott [address] [facility] [address] [place] [address] Social History Tobacco Use Types Packs/Day Years Used Date Smoking Tobacco: Never Passive Smoke Exposure: Never Smokeless Tobacco: Never Alcohol Use Standard Drinks/Week Comments Yes 0 (1 standard drink = 0.6 oz pur e alcohol) Sex and Gender Information Value Date Recorded Sex Assigned at Not on file Legal Sex Male 1:55 PM EST Gender Identity Not on file Sexual Orientation Not on file documented as of this encounter Miscellaneous Notes * Telephone Encounter - Mesfin Sarah MD - 12/20/2024 2:17 PM EDT Seen in office * Telephone Encounter - Yesica Knott - 12/20/2024 11:24 AM EDT Pt called requesting to speak with you. He started having swelling on his legs after taking amlodipine. The pulmonary Doctor recommended pt to contact us. [phone] documented in this encounter Plan of Treatment Upcoming Encounters Date Type Department Care Team (Late st Contact Info) Description 12/12/2025 1:15 PM EDT Office Visit [facility] [address] [place] [address] Mesfin Sarah MD [address] [phone] documented as of this encounter Visit Diagnoses Not on filedocumented in this encounter Care Teams Supervisor Loading Relationship Specialty Start Date End Date Otoniel Gusman MD [facility] [address] [facility] [address] [place], [place] PCP - General Internal Medicine 10/08/21 documented as of this encounter
[2024-12-22 10:43] VITALS: BMI 29.7
--- NOTE | 2024-12-22 10:43 | A.SPINEOV_ITS ---
Vital Signs 12/22/24 10:43 Height 5 ft 10 in Weight 207 lb BMI 29.7 Intake Visit Reasons: LBP Intake Note: Mr. Yancey is here today c/o Low back pain that radiates down the legs causing weakness and balance issues. Project Portfolio Analyst Required: No Allergies No Known Allergies Allergy (Verified 12/22/24 10:44) Physical Exam Vital Signs: BMI result Body Mass Index 29.7 Assessment & Plan Assessment & Plan (1) Scoliosis of lumbar region due to degenerative disease of spine in adult: Code(s): M41.56 - Other secondary scoliosis, lumbar region Category: Medical Plan: Dear colleague Thank you for referring Kingsley Yancey to the office today with a chief complaint of right back and thigh pain. HPI: This 79-year-old male he is having bilateral leg symptoms since circa 2009. He had epidural steroid injections done that helped for the left side but the right side remains bothersome. He complains of a painful spot right side of his back that radiates to the lateral thigh. He describes this as an ache. He does not need a heating pad. He can not get comfortable independent of rest or activity. He denies weakness or numbness. He does have an unexplained balance problem. He walks with a wide-based gait. The following conservative treatment options were tried without success antii nflammatories, tylenol, physical therapy and cortisone shots PMH: Tonsillectomy, hernia repair, hypertension. He had a Pseudomonas infection of the lungs that was treated successfully. Medications: Losartan, amlodipine, carvedilol, montelukast, Advil, Tylenol and oxycodone p.r.n. Allergies: NKDA Social history: . Nonsmoker Physical Exam: Pleasant male. He walks with a wide-based gait and supports himself with a cane. Romberg is positive. No upper motor neuron findings. This pain on palpation of the right SI joint. SI joint provocative tests are negative. Straight leg raise is negative. Motor exam is 5/5. Sensory exam is intact. Radiological Studies: MRI done at [facility] on 11/14/2024 shows a lumbar degenerative scoliosis L3-4 L4-5 and severe L4-5 spinal stenosis and right lateral recess stenosis. A standing x-ray with flexion-extension shows again the lumbar degenerative scoliosis with the apex at L3-4 and L4-5. Impression/Plan: This patient is suffering from right lumbar radiculopathy most likely due to the L4-5 lateral recess stenosis. The curve is worse at L3-4 and less at L4-5. Normally, I would offer a minimally invasive correction of the degenerative scoliosis to indirectly decompress the nerve roots. However, this patient denies any back pain. Therefore I think it is reasonable to do a right L4-5 decompression with the understanding that the fusion procedure may still be necessary in the future. He is scheduled for February 01. He recently had a office visit with his renal doctor to follow-up for hyponatremia that started after Lasix treatment. He states that the blood values are normal. We will obtain the records. Thank you for allowing me to participate in your patients care. total time spent was 50 minutes in counseling ,coordination of plan, personal review of imaging, surgical decision making and subsequent plan Cristian Gay MD, PhD Spine Fellowship Trained Neurosurgeon Director, [facility] (2) Spinal stenosis of lumbar region with radiculopathy: Code(s): M48.061 - Spinal stenosis, lumbar region without neurogenic claudication; M54.16 - Radiculopathy, lumbar region Category: Medical Plan: e Orders: Orders XR lumbar spine 4V min Today M41.56 - Other secondary scoliosis, lumbar region, M48.061 - Spinal stenosis, lumbar region without neurogenic claudication, M54.16 - Radiculopathy, lumbar region Coding Level of Care Code New Pt Level 4 (94597) Diagnoses Scoliosis of lumbar region due to degenerative disease of spine in adult M41.56 Spinal stenosis of lumbar region with radiculopathy M48.061; M54.16
== END 2024-12-22 11:44 | disposition home or self-care (01) ==
LOC: HO.HNS 10:11
PROVIDERS: PCP Internal Medicine; Visit Provider Neurological Surgery
DX: M41.56 Other secondary scoliosis, lumbar region (principal); M48.061 Spinal stenosis, lumbar region without neurogenic claudication; M54.16 Radiculopathy, lumbar region
CPT/HCPCS: 99204

== ENCOUNTER 2024-12-22 10:10 | Outpatient (REF) | payer MEDICARE, BC, SELFPAY ==
--- NOTE | ~2024-12-22 | XR_ITS ---
CLINICAL HISTORY: M41.56 - Other secondary scoliosis, lumbar region 4 views lumbar spine Comparison: None Findings: There is scoliotic curvature. No acute fractures or dislocation. There is multiple level degenerative disc and facet change. IMPRESSION: No acute findings. This document has been electronically signed by: Otoniel Andres MD on 12/23/2024 08:46:17
== END 2024-12-22 10:11 | disposition home or self-care (01) ==
LOC: HO.HOSX 10:10
PROVIDERS: PCP Internal Medicine; Visit Provider Neurological Surgery
DX: M48.061 Spinal stenosis, lumbar region without neurogenic claudication (principal); M41.56 Other secondary scoliosis, lumbar region; M54.16 Radiculopathy, lumbar region
CPT/HCPCS: 72110; 99202

== ENCOUNTER → 2024-12-22 11:13 | Outpatient (BNV) | payer MEDICARE, BC, SELFPAY | PROVIDERS: PCP Internal Medicine; Visit Provider Specialist | DX: M48.061 Spinal stenosis, lumbar region without neurogenic claudication (principal); M41.56 Other secondary scoliosis, lumbar region | CPT/HCPCS: 72110 ==

== ENCOUNTER → 2025-01-18 13:13 | Outpatient (BNV) | payer MEDICARE, BC, SELFPAY | PROVIDERS: PCP Internal Medicine; Visit Provider Internal Medicine Cardiovascular Disease | DX: I44.1 Atrioventricular block, second degree (principal); I49.3 Ventricular premature depolarization | CPT/HCPCS: 93010 ==

== ENCOUNTER 2025-02-01 06:45 | Day surgery (SDC) | payer MEDICARE, BC, SELFPAY ==
--- OUTSIDE RECORDS SUMMARY | 2024-12-28 13:52 | XMS_ITS | Encounter Summary ---
Author Organization [facility] Address [address] [facility] [address] [place] [address] Phone Care Team Providers Care Cms Expert Name Role Phone Otoniel Gusman MD Primary Care Provider [phone] Encounter Details Date Type Department Care Team (Late st Contact Info) Description 12/19/2024 Telephone [facility]. [address] [facility] [address] [place] [address] Yesica Knott [address] [facility] [address] [place] [address] Social History Tobacco Use Types [...] pulmonary Doctor recommended pt to contact us. [phone] documented in this encounter Plan of Treatment Upcoming Encounters Date Type Department Care Team (Late st Contact Info) Description 12/12/2025 1:15 PM EDT Office Visit [facility] [address] [place] [address] Mesfin Sarah MD [address] [phone] documented as of this encounter Visit Diagnoses Not on filedocumented in this encounter Care Teams Cms Expert Relationship Specialty Start Date End Date Otoniel Gusman MD [facility] [address] [facility] [address] [place], [place] PCP - General Internal Medicine 10/08/21 documented as of this encounter
--- NOTE | 2025-01-18 | ECG_ITS ---
Test Reason : PREOP Blood Pressure : */* mmHG Vent. Rate : 83 BPM Atrial Rate : 83 BPM P-R Int : 216 ms QRS Dur : 90 ms QT Int : 392 ms P-R-T Axes : 77 -23 62 degrees QTcB Int : 460 ms Sinus rhythm with 1st degree A-V block with occasional Premature ventricular complexes Cannot rule out Inferior infarct , age undetermined Abnormal ECG No previous ECGs available Referred By: Anjali Griffith Electronically Signed By: Angus Mccartney
[2025-01-18 12:26] VITALS: BP 139/72; PULSE 69; RESP 17; O2SAT 97
--- NOTE | 2025-01-18 12:49 | HO.ANESPROP2 ---
Documented by User: Anjali Griffith NP 01/30/25 12:06 HPI - Anesthesia Eval Consult details Narrative: 79yo M for Right L4-5 Decompression, 02/01/25 No recent illness No CP/SOB with push mower, yard work COPD: Follows [facility] [place] pulmo. Stable at 11/2024. Albuterol very rare ~ 1 x yearly. At PAT visit, Faint crackles RLL, clears with cough. Instructed deep breathing and cough multiple times daily until DOS ETOH: 6-8 beers daily. Discussed slow decrease preop and risks associated with heavy ETOH. Will decrease down to 2 beers and maintain until DOS Follows renal for CKD, electrolyte imbalances. Last office visit 11/2024. HTN meds adjusted d/t higher dose amlodipine causing LE edema. Edema improved with lower dose. BP within goal Radiation hx for skin CA on top of head PMFSH Active Problems Active Problems: All Active Problems Spinal stenosis of lumbar region with radiculopathy (Acute) Scoliosis of lumbar region due to degenerative disease of spine in adult (Acute) Sinusitis (Acute) Lower extremity edema (Acute) GERD (gastroesophageal reflux disease) (Acute) Chronic rhinitis (Acute) Cough (Acute) COPD (chronic obstructive pulmonary disease) (Acute) Past Medical History Medical History History of use of hearing aid in both ears Hard of hearing Hx of radiation therapy Arthritis Spinal stenosis Weakness Habitual snoring Murmur History of Mohs micrographic surgery for skin cancer Squamous cell carcinoma in situ (SCCIS) Obesity Osteoarthritis Impotence Erectile dysfunction Hyponatremia HTN (hypertension) CKD (chronic kidney disease) stage 3, GFR 30-59 ml/min Bronchiectasis Back pain Asthma Alcohol dependence Lower extremity edema GERD (gastroesophageal reflux disease) Chronic rhinitis Cough COPD (chronic obstructive pulmonary disease) Family History Family history of problems with anesthesia: No Surgical History Surgical History Vasectomy status Hx of bilateral cataract extraction History of bronchoscopy Hx of inguinal hernia repair H/O colonoscopy History of Problems with Anesthesia: No Social History Social History Are you a primary critical care unit nurse to a significant other at home: No Do you presently have visiting nurse or other home services: No Patient Tobacco Use Status: Never used Tobacco Use of substances other than those prescribed or required for medical reasons: No Have you been hit, kicked, punched, or otherwise hurt by someone within the past year? If so, by whom?: No Are you DNR?: No Advance Directives: No Advance Directives Information Provided: Yes Advance Directives on File: No Poor oral hygiene: Yes Meds Allergies Allergy/AdvReac Type Severity Reaction Status Date / Time No Known Allergies Allergy Verified 02/01/25 07:15 Home Medications ?Medication ?Instructions ?Recorded ?Confirmed ?Last Taken ?Type losartan 100 mg tablet 100 mg PO DAILY 06/06/20 02/01/25 01/31/25 History amlodipine 2.5 mg tablet 5 mg PO DAILY 12/14/24 02/01/25 02/01/25 History albuterol sulfate 90 mcg/actuation 2 puff inhalation Q4-6H PRN 01/17/25 02/01/25 Unknown History aerosol inhaler Shortness Of Breath Or Wheezing oxycodone 5 mg tablet 5 mg PO BEDTIME PRN Pain 01/17/25 02/01/25 Unknown History tadalafil 20 mg tablet (Cialis) 20 mg PO DAILY PRN Sexual Activity 01/17/25 02/01/25 Unknown History acetaminophen 650 mg 1,300 mg PO Q12H PRN Pain 01/18/25 02/01/25 Unknown History tablet,extended release bismuth subsalicylate 262 mg/15 mL 524 mg PO BEDTIME PRN Acid Reflux 01/18/25 02/01/25 Unknown History oral suspension (Pepto-Bismol) carvedilol 3.125 mg tablet 3.125 mg PO BID 01/18/25 02/01/25 02/01/25 History fluticasone propionate 50 1 spray intranasal DAILY 01/18/25 02/01/25 Unknown History mcg/actuation nasal spray,suspension ibuprofen 200 mg tablet 400 mg PO Q6H PRN Pain 01/18/25 02/01/25 01/22/25 History melatonin 10 mg tablet 10 mg PO BEDTIME PRN Insomnia 01/18/25 02/01/25 Unknown History Exam Height,Weight and Vital Signs: Height 5 ft 10 in Weight 94.801 kg Last Vital Signs Pulse 69 06/19/25 12:26 Resp 17 01/18/25 12:26 BP 139/72 01/18/25 12:26 Pulse Ox 97 01/18/25 12:26 O2 Del Method Room Air 01/18/25 12:26 Pertinent Lab Results Pertinent Lab Results: Lab Results 01/18/25 Range/Units 13:11 WBC 6.4 (4.8-10.8) X10*3/uL RBC 4.45 L (4.60-5.80) X10*6/uL Hgb 15.4 (14.0-18.0) g/dl Hct 42.7 (42.0-52.0) % MCV 96.0 (80.0-98.0) fL MCH 34.6 H (27.0-33.0) pg MCHC 36.1 H (31.0-36.0) g/dl RDW 11.5 (11.0-16.0) % Plt Count 243 (160-400) X10*3/uL MPV 8.6 L (9.4-12.4) fL Absolute Nucleated RBC 0.000 (0.0-0.012) X10*3/uL Nucleated RBC % (auto) 0.0 (0.0-0.2) /100WBC Sodium 133 L (135-145) mmol/L Potassium 4.1 (3.3-5.1) mmol/L Chloride 97 (96-108) mmol/L Carbon Dioxide 26 (22-29) mmol/L Anion Gap 14 (12-20) BUN 8 L (9-16) mg/dL Creatinine 0.96 (0.5-1.4) mg/dL Estim Creat Clear Calc 72.1 Estimated GFR > 60 Random Glucose 93 (60-115) mg/dL Calcium 9.2 (8.4-10.2) mg/dL Narrative Narrative: EKG 12/2024 Vent. Rate : 83 BPM Atrial Rate : 83 BPM P-R Int : 216 ms QRS Dur : 90 ms QT Int : 392 ms P-R-T Axes : 77 -23 62 degrees QTcB Int : 460 ms Sinus rhythm with 1st degree A-V block with occasional Premature ventricular complexes Cannot rule out Inferior infarct , age undetermined Abnormal ECG 1st deg AV block and PVCs new from 2022 [facility] EKG Inf infarct previously seen Airway Mallampati Class: III TM Dist: >3cm Neck ROM: Full Loose/Missing/Broken Teeth: Yes (molars extracted ) Heart: RRR Lungs: Faint crackles RLL, clears with cough. Otherwise CTA Assessment and Plan Assessment Anesthesia Assessment: Anesthesia Plan Discussed and PAT Visit Final Anesthetic Review Family History of Problems with Anesthesia: No History of Problems with Anesthesia: No Documented by User: Satnam Tate MD 02/01/25 08:06 [facility] Past Medical History Medical History History of use of hearing aid in both ears Hard of hearing Hx of radiation therapy Arthritis Spinal stenosis Weakness Habitual snoring Murmur History of Mohs micrographic surgery for skin cancer Squamous cell carcinoma in situ (SCCIS) Obesity Osteoarthritis Impotence Erectile dysfunction Hyponatremia HTN (hypertension) CKD (chronic kidney disease) stage 3, GFR 30-59 ml/min Bronchiectasis Back pain Asthma Alcohol dependence Lower extremity edema GERD (gastroesophageal reflux disease) Chronic rhinitis Cough COPD (chronic obstructive pulmonary disease) Functional capacity: uses cane/walker Surgical History Surgical History Vasectomy status Hx of bilateral cataract extraction History of bronchoscopy Hx of inguinal hernia repair H/O colonoscopy Social History Social History Are you a primary critical care unit nurse to a significant other at home: No Do you presently have visiting nurse or other home services: No Patient Tobacco Use Status: Never used Tobacco Use of substances other than those prescribed or required for medical reasons: No Have you been hit, kicked, punched, or otherwise hurt by someone within the past year? If so, by whom?: No Are you DNR?: No Advance Directives: No Advance Directives Information Provided: Yes Advance Directives on File: No Poor oral hygiene: Yes Meds Allergies Allergy/AdvReac Type Severity Reaction Status Date / Time No Known Allergies Allergy Verified 02/01/25 07:15 Home Medications ?Medication ?Instructions ?Recorded ?Confirmed ?Last Taken ?Type losartan 100 mg tablet 100 mg PO DAILY 06/06/20 02/01/25 01/31/25 History amlodipine 2.5 mg tablet 5 mg PO DAILY 12/14/24 02/01/25 02/01/25 History albuterol sulfate 90 mcg/actuation 2 puff inhalation Q4-6H PRN 01/17/25 02/01/25 Unknown History aerosol inhaler Shortness Of Breath Or Wheezing oxycodone 5 mg tablet 5 mg PO BEDTIME PRN Pain 01/17/25 02/01/25 Unknown History tadalafil 20 mg tablet (Cialis) 20 mg PO DAILY PRN Sexual Activity 01/17/25 02/01/25 Unknown History acetaminophen 650 mg 1,300 mg PO Q12H PRN Pain 01/18/25 02/01/25 Unknown History tablet,extended release bismuth subsalicylate 262 mg/15 mL 524 mg PO BEDTIME PRN Acid Reflux 01/18/25 02/01/25 Unknown History oral suspension (Pepto-Bismol) carvedilol 3.125 mg tablet 3.125 mg PO BID 01/18/25 02/01/25 02/01/25 History fluticasone propionate 50 1 spray intranasal DAILY 01/18/25 02/01/25 Unknown History mcg/actuation nasal spray,suspension ibuprofen 200 mg tablet 400 mg PO Q6H PRN Pain 01/18/25 02/01/25 01/22/25 History melatonin 10 mg tablet 10 mg PO BEDTIME PRN Insomnia 01/18/25 02/01/25 Unknown History Exam Exam Date and Time: 02/01/2025 Airway Mallampati Class: II TM Dist: >3cm Other: normal orientation and cognitive function Assessment and Plan Final Anesthetic Review NPO: Yes ASA Class: II Final Preanesthetic Review: No Changes in Pt Med Stat, Meds/Allgs Chart Reviewed, Consent Obtained/Reviewed and Anes Risks/Benef Reviewed Patient Risk: Intermediate Procedure Risk: Low Anesthetic Plan Anesthetic Plan: GA Disposition: Standard PACU
[2025-01-18 13:19] LABS: Hematocrit 42.7 % (42.0-52.0); Hemoglobin 15.4 g/dl (14.0-18.0); Mean Corpuscular HGB Conc 36.1 g/dl (31.0-36.0); Mean Corpuscular Hemoglobin 34.6 pg (27.0-33.0); Mean Corpuscular Volume 96.0 fL (80.0-98.0); NRBC Abs Auto 0.000 X10*3/uL (0.0-0.012); NRBC Pct Auto 0.0 /100WBC (0.0-0.2); Platelet Count 243 X10*3/uL (160-400); Red Blood Count 4.45 X10*6/uL (4.60-5.80); White Blood Count 6.4 X10*3/uL (4.8-10.8)
[2025-01-18 14:20] LABS: Anion Gap 14 (12-20); Blood Urea Nitrogen 8 mg/dL (9-16); Calcium 9.2 mg/dL (8.4-10.2); Carbon Dioxide 26 mmol/L (22-29); Chloride 97 mmol/L (96-108); Creatinine Clr Calc Pharmacy 72.1; Estimated Glomerular Filt Rate > 60; Potassium 4.1 mmol/L (3.3-5.1); Sodium 133 mmol/L (135-145)
[2025-02-01] VITALS (7 sets, daily range): BP systolic 113–145; BP diastolic 56–76; PULSE 68–71; RESP 16; TEMP 36.1–36.7; O2SAT 97–99; BMI 29.1
--- NOTE | ~2025-02-01 | FL_ITS ---
EXAMINATION: FL GUIDANCE ONLY HISTORY: l4-5 decompression, right COMPARISON: None available. TECHNIQUE: Fluoroscopy time: Less than 1 minute. Cumulative Dose: 2.90 mGy. DAP: 0.790 mGym2 Images: 1. FINDINGS: A single fluoroscopic spot film of the lumbar spine demonstrates a probe directed toward the L5 vertebral body. FL/FL guidance in OR IMPRESSION: Fluoroscopy during procedure. Please see procedure report for additional information. Electronically signed by: Puma Baird MD 02/01/2025 10:13 AM EDT
--- NOTE | 2025-02-01 07:07 | MHC.SHP ---
Pre-Procedural Eval Section A - 24 Hr Update-Section A only Date of Service: 02/01/25 The patient is an INPATIENT: No Changes since office visit: No Cold of Flu in the past 2 weeks, No New Medical Problems, No Changes in Medication and No Patient answered all questions The patient has been examined within 24 hours of the surgical procedure. The History & Physical has been completed within 30 days and I have reviewed it.: No Section B - Complete if H&P > 30 days Chief Complaint: Other secondary scoliosis, lumbar region Allergies: Allergies Allergy/AdvReac Type Severity Reaction Status Date / Time No Known Allergies Allergy Verified 12/22/24 10:44 Review of Systems Sugical H&P ROS: Negative: Constitution, Cardiovascular, Respiratory, Neurological, Psychiatric, Hem-Onc, Allergic/Immunologic, Gastrointestinal, Genitourinary, Musculoskeletal, Integumentary, Endocrine and Eyes/Ears/Nose/Throat Exam Surgical H&P Exam: Normal: HEENT, Normal: Heart, Normal: Lungs, Normal: Extremities, Normal: Abdomen, Normal: Skin and Normal: Neurological (awake alert oriented x 3 ) Plan Diagnosis/Plan: Unchanged right L4-5 decompression Time Spent With Patient Time: Total time managing care of this patient today __5__ minutes.
[2025-02-01] MEDS: Lactated Ringers 1,000 ML 100 ML IVCONT (07:31)
--- NOTE | 2025-02-01 07:40 | P.DS_ITS ---
DS: Providers Provider Date of Service: 02/01/25 Date of discharge: 02/01/25 Primary care physician: Otoniel Gusman MD Admitting clinician: Cristian Gay DS: Diagnosis Discharge Diagnosis (1) Spinal stenosis of lumbar region with radiculopathy: Status: Acute DS: Summary Time Attestation Discharge Coordination Time (in mins): 5 Quality: Safe Use of Opioids Does Pt have an Active Cancer Diagnosis on the Problem List?: No Quality: Stroke Does the patient have a stroke diagnosis?: No Physical Exam Vital Signs: Vital Signs: Last Vital Signs Pulse 69 01/18/25 12:26 Resp 17 01/18/25 12:26 BP 139/72 01/18/25 12:26 Pulse Ox 97 01/18/25 12:26 O2 Del Method Room Air 01/18/25 12:26 BMI result Body Mass Index 29.1 Discharge Plan Discharge Patient Disposition: Home, Self-Care Referrals: Otoniel Gusman MD [Primary Care Provider, Internal Medicine] - 1 Week Discharge Medications: New oxycodone 5 mg tablet 5 mg PO Q4H PRN (Reason: pain) Qty: 20 0RF Rx Instructions: Partial Fill upon patient request. Continued montelukast 10 mg tablet 10 mg PO BEDTIME Qty: 90 3RF albuterol sulfate 90 mcg/actuation Hfa Aerosol Inhaler 2 puff INHALATION Q4-6H PRN (Reason: Shortness Of Breath Or Wheezing) oxycodone 5 mg Tablet 5 mg PO BEDTIME PRN (Reason: Pain) tadalafil [Cialis] 20 mg Tablet 20 mg PO DAILY PRN (Reason: Sexual Activity) Rx Instructions: administer approximately 30min before sexual activity; do not use more than 1 dose per 24hrs carvedilol 3.125 mg tablet 3.125 mg PO BID acetaminophen 650 mg Tablet Extended Release 1,300 mg PO Q12H PRN (Reason: Pain) ibuprofen 200 mg Tablet 400 mg PO Q6H PRN (Reason: Pain) fluticasone propionate 50 mcg/actuation [place],Suspension 1 spray INTRANASAL DAILY Rx Instructions: administer into each nostril melatonin 10 mg Tablet 10 mg PO BEDTIME PRN (Reason: Insomnia) bismuth subsalicylate [Pepto-Bismol] 262 mg/15 mL Suspension 524 mg PO BEDTIME PRN (Reason: Acid Reflux) losartan 100 mg tablet 100 mg PO DAILY amlodipine 2.5 mg tablet 5 mg PO DAILY Discharge Orders: Discharge Order (Routine); Ordered 02/01/25 Ordered By: Nick Mohr Diet: Advance to usual diet Activity on Discharge: As tolerated Activity Restrictions/Additional Instructions: After your spinal surgery we ask you to observe the following restrictions/guidelines: Activity: YOU HAD A SMALL SPINAL FLUID LEAK SEEN AT THE TIME OF SURGERY. IT IS NORMAL TO EXPERIENCE MILD HEADACHES WHEN THIS HAPPENS. IF YOU EXPERIENCE SEVERE HEADACHES PLEASE CALL OUR OFFICE TO UPDATE US. USUALLY IT WILL GO AWAY IF YOU STAY FLAT IN BED FOR A DAY. IF YOU EXPERIENCE ANY LEAKING FROM YOUR WOUND WHICH LOOKS LIKE CLEAR WATER, WE ASK THAT YOU CALL US RIGHT AWAY. [phone] It is normal to feel some discomfort as you increase your activity, but that will improve with time. We ask you avoid heavy lifting or acitivities that cause pain. As a general rule, 8lbs is a safe limit for lifting right after surgery. Stay well hydrated. It is OK to walk up and down stairs You may return to driving when you are off narcotics (such as vicodin, oxycodone, dilaudid, etc), and you are back to normal functional capacity. If you have any concerns please check with office before driving. Return to work is specific to each patient and each surgery, so please speak with your doctor/PA at first follow up. Please bring paperwork such as FMLA at that time if you need it filled out. Medications: For optimum pain control, it is best to start with a combination of 500 mg of Tylenol every 4 hours with 600 mg of Motrin every 8 hours, and use narcotics as needed in between for breakthrough pain. We will give you a short supply of narcotics after surgery (usually one weeks worth). If you need more please call the office but do not use more than prescribed. You will need to give our office 48 hours notice if you need narcotics refilled and we do not fill narcotics on weekends or evenings. If you are on a narcotic, it is a good idea to take a stool softener such as colace or senna to avoid constipation If you take blood thinner such as aspirin, Plavix, Coumadin, Effient, Eliquis etc for conditions such as Afib, DVT, Pulmonary embolus, coronary disease, stents etc please speak with your surgeon about specific details as to when you can resume these medications. You can resume NSAIDs on post op day 1 (eg: Motrin, Naproxen, etc). Follow up: Please call the office, , after surgery to arrange a 3 week follow up for wound check. Wound Care: You may remove your dressing on the first day after surgery. ?You may ?leave open to air. You have sutures that will need to be removed in 10-14 days. Please contact the office to arrange this follow-up. We ask that you do not let the water soak the wound. If it does get wet, just towel dry lightly. Please do not scrub your incision or place any type of chemical/ointment on the wound. No tub baths, pools or jacuzzis for one month. If you have any leaking or redness from your wound, or fevers, please call office Print Language: Upper Sorbian
--- NOTE | 2025-02-01 10:27 | W.PM.OPN ---
Operative Note Operative Note Date of Service: 02/01/25 Narrative: Preoperative Diagnosis: L4-5 spinal stenosis/lateral recess stenosis/neural foraminal stenosis Operation: Right L4-5 Laminotomy, Partial facetectomy and foraminotomy with use of microscope Consent Informed Consent was obtained for this operation. I have explained the nature, purpose and benefits of the operation. I have discussed the risks and benefit of the operation including possible complications or adverse events with patient/family. Alternative(s) were discussed with the patient with their relative benefits and risks as well as the consequences of not accepting the operation were included in obtaining consent. Surgeon: KOFFI HUNT MD, PHD Procedure Assisted By: Nick Ball Description of Procedure This patient is suffering from right leg pain due to right L4-5 lateral recess stenosis. The patient was offered a decompression. The procedure complications were explained. The patient was consented. The patient was brought to the operating room and endotracheally intubated. The patient was turned in prone position on the Valerio frame. Prep and drape was done followed by timeout. The Physician assistant maintenance manager provided access. A mid lumbar incision was made followed by release of the paravertebral muscle on the right side to expose the L4-L5 lamina and facet joints. An intraoperative x-ray was obtained to confirm the correct level. The microscope was brought in. I took over the procedure. The high-speed drill was used to do a L4 laminotomy until flavum ligament was reached. A #2 Kerrison was used to expand the laminotomy near flush to the pedicles and to include a partial facetectomy. During this maneuver a small durotomy occurred as I did not develop the plane between flavum ligament and dura adequately. The procedure continued as planned. The flavum ligament was further resected with a # 2 Kerrison to decompress the underlying thecal sac. The flavum ligament was removed to decompress the lateral recess and the exiting L5 nerve root. A long nerve hook could be easily passed along the medial side of the pedicles as a sign of adequate decompression. Small piece of DuraGen was laid over the defect covered with tissue coil. The microscope was removed. Hemostasis was done. The physician assistant maintenance manager close the incision in 3 layers with a 3-0 nylon running stitch for the skin. An OpSite with Tegaderm was used to cover the incision. All sponge needle counts were correct. Patient was extubated and transported in stable is to recovery room. Anesthesia: General Estimated Blood Loss (ml): 25 Complications: None Duration of Surgery: Under 60 Minutes Postoperative Plan: Discharge to home
== END 2025-02-01 11:44 | disposition home or self-care (01) ==
PROVIDERS: Nurse Practitioner; PCP Internal Medicine; Visit Provider Neurological Surgery
PROC: (CPT 63047; principal; 2025-02-01 08:30)
DX: M48.061 Spinal stenosis, lumbar region without neurogenic claudication (principal); M41.56 Other secondary scoliosis, lumbar region; M54.16 Radiculopathy, lumbar region; M54.50 Low back pain, unspecified; R26.89 Other abnormalities of gait and mobility; I12.9 Hypertensive chronic kidney disease with stage 1 through stage 4 chronic kidney disease, or unspecified chronic kidney disease; N18.30 Chronic kidney disease, stage 3 unspecified; J44.9 Chronic obstructive pulmonary disease, unspecified; Z85.828 Personal history of other malignant neoplasm of skin; Z92.3 Personal history of irradiation; H91.93 Unspecified hearing loss, bilateral; Z97.4 Presence of external hearing-aid; Z99.89 Dependence on other enabling machines and devices; F10.20 Alcohol dependence, uncomplicated; Z98.890 Other specified postprocedural states
CPT/HCPCS: 63047; 36415; 80048; 85027; 93005; C1763; C9250; J0131; J0690; J1100; J2003; J2405; J2704; J3010

== ENCOUNTER → 2025-02-01 06:45 | Outpatient (BNV) | payer MEDICARE, BC, SELFPAY | PROVIDERS: PCP Internal Medicine; Visit Provider Physician Assistant | DX: M48.061 Spinal stenosis, lumbar region without neurogenic claudication (principal); M54.16 Radiculopathy, lumbar region | CPT/HCPCS: 63047; 99499 ==

== ENCOUNTER 2025-02-12 08:54 | Outpatient (AMB) | payer MEDICARE, BC, SELFPAY ==
--- OUTSIDE RECORDS SUMMARY | 2025-02-12 09:07 | XMS_ITS | Clinical Summary ---
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 Take with meals. 60 tablet 11 12/20/2024 6 Active amLODIPine (NORVASC) 5 MG tablet Take 1 tablet (5 mg total) by mouth 1 (one) time each day 30 tablet 11 12/20/2024 6 Active Active Problems Problem Noted Date Diagnosed Date Hypo-osmolality and hyponatremia 10/28/2021 Hypertension 10/28/2021 Allergic rhinitis 10/26/2017 History of pneumonia 10/26/2017 Overview (05/02/2024): Replacing diagnoses that were inactivated after the 05/02/24 Regulatory Import Asthma 06/11/2017 Chronic obstructive pulmonary disease 06/11/2017 Bronchiectasis 05/09/2017 Encounters Date Type Department Care Team Description 12/20/2024 1:30 PM EDT Office Visit [facility] [address] [phone] Mesfin Sarah MD Hypo-osmolality and hyponatremia (Primary Dx); Hypokalemia; Hypertension; Chronic kidney disease, not otherwise specified 12/19/2024 Telephone [facility] [address] [phone] Yesica Knott 11/17/2024 Refill [facility] [address] [phone] Mesfin Sarah MD 11/15/2024 1:30 PM EDT Office Visit [facility] [address] [phone] Mesfin Sarah MD Hypo-osmolality and hyponatremia (Primary Dx); Hypokalemia; Hypertension; Chronic kidney disease, not otherwise specified from Last 3 Months Immunizations Immunization Administration [...] Sign Reading Time Taken Comments Blood Pressure 143/76 12/20/2024 1:19 PM EDT Pulse 77 12/20/2024 1:19 PM EDT Temperature - - Respiratory Rate [...] Visit [facility] [address] [place] [phone] Mesfin Sarah MD [address] [phone] Health Maintenance Due Date Last Done Comments Pneumococcal Vaccine: 50+ Years (1 of 2 - PCV) 1964 Influenza Vaccine (#1) 2025 2, 2020, 06/27/2019, Additional history exists Hepatitis B Vaccine Aged Out No longe r eligible based on patient's age to complete this topic Insurance Medicare [facility] Medicare [facility] Care Teams Shovel Log Loader Operator Relationship Specialty Start Date End Date Otoniel Gusman MD [address] [place] [address] PCP - General Internal Medicine 10/08/21
--- NOTE | 2025-02-12 09:16 | A.SPINEOV_ITS ---
Intake Visit Reasons: Suture removal Intake Note: Mr. Yancey is here today for suture removal. Sample Distributor Required: No Allergies No Known Allergies Allergy (Verified 02/12/25 09:17) Assessment & Plan Assessment & Plan (1) Status post lumbar spine surgery for decompression of spinal cord: Code(s): Z98.890 - Other specified postprocedural states Category: Surgical Plan Kingsley is a pleasant 79 year old male who underwent Right L4-5 Laminotomy, Partial facetectomy and foraminotomy with incidental durotomy on 02/01/25. He comes in today for suture removal. He reports that for the 1st few days after his surgery he was doing really well and was essentially pain-free. Unf ortunately, over the weekend after his operation his pain returned. He reports being very discouraged about this. We discussed how this is likely secondary to postoperative inflammation, and that his surgery was likely successful. It is very likely that when the inflammation/swelling goes down he will start to experience symptom relief once more. He denies any headaches, dizziness, nausea, vomiting at home since his operation. His accompanied him to this visit who asked several questions regarding [id number] medications, all of which I answered to the best of my ability. No new neurological deficits. The patient ambulates well and rises from a seated position without much difficulty. His posterior incision site was closed with a single running suture which I removed during this visit. The patient tolerated the procedure well. No obvious drainage from the incision site after suture removal, however the sutures were imbedded fairly significantly into the skin. I have recommended to Kingsley that he follow up in 6 weeks for his 2nd postoperative visit, however he reported that he is scheduled to see Dr. Gay on the of this month, and would like to keep the appointment so he can discuss his symptoms with Dr. Gay as well. Dany Gay MD,PhD [facility] Coding Level of Care Code Global (08601) Diagnoses Status post lumbar spine surgery for decompression of spinal cord Z98.890
== END 2025-02-12 09:51 | disposition home or self-care (01) ==
LOC: HO.HNS 08:55
PROVIDERS: PCP Internal Medicine; Visit Provider Physician Assistant
DX: Z98.890 Other specified postprocedural states (principal)
CPT/HCPCS: 99024

== ENCOUNTER → 2025-02-12 08:54 | Outpatient (BNVA) | payer MEDICARE, BC, SELFPAY | PROVIDERS: PCP Internal Medicine; Visit Provider Physician Assistant | DX: Z48.02 Encounter for removal of sutures (principal); Z98.890 Other specified postprocedural states | CPT/HCPCS: 99212 ==

== ENCOUNTER 2025-02-21 12:54 | Outpatient (AMB) | payer MEDICARE, BC, SELFPAY ==
--- OUTSIDE RECORDS SUMMARY | 2025-02-21 13:17 | XMS_ITS | Clinical Summary ---
Author Organization [facility] Address [address] [place] [phone] Phone Care Team Providers Care Any Commodity Buyer Name Role Phone Otoniel Gusman MD Primary Care Provider [phone] Allergies Active Allergy Reactions Criticality Noted Date [...] Office Visit [facility] [address] [place] [phone] Mesfin Sarah MD Hypo-osmolality and hyponatremia (Primary Dx); Hypokalemia; Hypertension; Chronic kidney disease, not otherwise specified 12/19/2024 Telephone [facility] [address] [phone] Yesica Knott from Last 3 Months Immunizations Immunization Administration [...] Office Visit [facility] [address] [place] [phone] Mesfin Sarah MD [address] [phone] Health Maintenance Due Date Last Done Comments Pneumococcal Vaccine: 50+ Years (1 of 2 - PCV) 1964 Influenza Vaccine (#1) 2025 2, 2020, 06/27/2019, Additional history exists Hepatitis B Vaccine Aged Out No longe r eligible based on patient's age to complete this topic Insurance Medicare [facility] Medicare [facility] Care Teams Any Commodity Buyer Relationship Specialty Start Date End Date Otoniel Gusman MD [address] [place] [address] PCP - General Internal Medicine 10/08/21
--- OUTSIDE RECORDS SUMMARY | 2025-02-21 13:17 | XMS_ITS | Clinical Summary ---
Author Organization [facility] Address [address] [address] Phone Care Team Providers Care Car Tester Name Role Phone Otoniel Gusman MD Primary Care Provider [phone] Allergies No known active allergies Medications celecoxib (CELEBREX) 200 MG capsule Take 200 mg by mouth. Active hydroCHLOROthia zide (HYDRODIURIL) 50 MG tablet Take 50 mg by mouth. 2 Active ibuprofen (ADVIL,MOTRIN) 200 MG tablet Take 200 mg by mouth every 6 (six) hours as needed. Active losartan (COZAAR) 100 MG tablet Take 100 mg by mouth. Active melatonin 3 mg Tab Take 1 mg by mouth. Active traMADoL (ULTRAM) 50 mg tablet Take 50 mg by mouth every 8 (eight) hours as needed. 3 Active ciprofloxacin HCl (CILOXAN) 0.3 % ophthalmic solution Administer 1 drop, every 2 hours, while awake, for 2 days. Then 1 drop, every 4 hours, while awake, for the next 5 days. 5 mL 3 Active Active Problems Problem Noted Date Diagnosed Date Hypo-osmolality and hyponatremia 10/28/2021 11/24/2022 Hypertension 10/28/2021 11/24/2022 Allergic rhinitis 10/26/2017 11/24/2022 Chronic obstructive pulmonary disease 06/11/2017 11/24/2022 Asthma 06/11/2017 11/24/2022 Bronchiectasis 05/09/2017 11/24/2022 Immunizations Immunization Administration Dates Next Due Influenza High-Dose Trivalent Preservative Free IM 06/27/2019 Influenza Quadrivalent Adjuvanted Preservative F ree IM 04/14/2022 Influenza Recombinant Quadrivalent Preservative Free IM 2020 Influenza Trivalent Adjuvanted Preservative free IM 05/26/2018 Social History Tobacco Use Types Packs/Day Years Used Date Smoking Tobacco: Never Passive Smoke Exposure: Never Smokeless Tobacco: Never Education Answer Date Recorded Are you interested in more education? Not on mariely e 11/28/2022 Are you concerned about learning? Not on file 11/28/2022 No 11/28/2022 No 11/28/2022 Digital Access Answer Date Recorded No 12/29/2022 No 12/29/2022 Reliable internet access at home? Not on file 12/29/2022 Device with a working camera? Not on file Sex and Gender Information Value Date Recorded Sex Assigned at Not on file Legal Sex Male 7:55 AM EDT Gender Identity Not on file Sexual Orientation Not on file Last Filed Vital Signs Vital Sign Reading Time Taken Comments Blood Pressure 125/82 11/24/2022 8:04 AM EDT Pulse 85 11/24/2022 8:04 AM EDT Temperature 36.4 C (97.5 F) 11/24/2022 8:04 AM EDT Respiratory Rate 18 11/24/2022 8:04 AM EDT Oxygen Saturation 97% 11/24/2022 8:04 AM EDT Inhaled Oxygen Concentration - - Weight 92.5 kg (204 lb) 11/24/2022 8:04 AM EDT Height - - Body Mass Index - - Plan of Treatment Health Maintenance Due Date Last Done Comments Adult Td,Tdap Booster 1945 CREATININE LEVEL 1945 LIPID PANEL 1945 POTASSIUM LEVEL 1945 DEPRESSION SCREENING 1957 HEPATITIS C SCREENING 1963 PNEUMOCOCCAL VACCINES (50+ years) (1 of 2 - PCV) 1964 SMOKING STATUS SCREENING (Once After 26 Yrs) 1971 ZOSTER VACCINES (1 of 2) 1995 RSV VACCINE (1 - 1-dose 75+ series) 2020 BLOOD PRESSURE 05/26/2023 11/24/2022 COVID-19 VACCINE ( - 2023- season) 2024 04/14/2022, 11/28/2021, 05/01/2021, Additional history exists HEPATITIS A VACCINES Aged Out No long er eligible based on patient's age to complete this topic HIB VACCINES Aged Out No longer eligi ble based on patient's age to complete this topic MENINGOCOCCAL VACCINES (ACWY) Aged Out No longer eligible based on patient's age to complete this topic MENINGOCOCCAL VACCINES (B) Aged Out N o longer eligible based on patient's age to complete this topic Medical Devices Not on file Insurance MEDICARE PART A & B [facility] MEDICARE PART A & B [facility] MEDICARE PART A & B [facility] MEDICARE PART A & B [facility] MEDICARE PART A & B [facility] MEDICARE PART A & B [facility] Care Teams Car Tester Relationship Specialty Start Date End Date Otoniel Gusman MD [address] [place] [address] PCP - General Internal Medicine 11/24/22 Additional Source Comments The information contained in this document represents components of the legal health record. It is not the complete legal health record.[facility]
--- NOTE | 2025-02-21 13:28 | HO.SPINEOV ---
Intake Visit Reasons: 1st post op Intake Note: Mr. Yancey is here today for his 1st post op Induction Furnace Operator Required: No Allergies No Known Allergies Allergy (Verified 02/12/25 09:17) Assessment & Plan Assessment & Plan (1) Status post lumbar spine surgery for decompression of spinal cord: Code(s): Z98.890 - Other specified postprocedural states Category: Surgical Plan Procedure: Right L4-5 Laminotomy, Partial facetectomy and foraminotomy Kingsley comes in today for his 1st postoperative visit after having a L4-5 lumbar decompression completed by Dr. Gay on 02/01/2025. To recap he was initially evaluated in clinic for bilateral lower extremity pain, right side worse than left. Today, he reports that overall his right lower extremity pain is much better than it was prior to surgery, and is practically nonexistent. Unfortunately, since his surgery he developed left-sided posterior buttocks pain. He has had this pain in his similar distribution before, but states that it was resolved with cortisone injections. In addition to this, his significant other accompanies him to this visit today and raised concerns regarding some swelling of his left lower extremity. He did recently have his amlodipine 10 mg dose reduced down to 5 mg by his prescriber to address this. He denies any associated left lower extremity pain, changes in color of the left lower extremity, or difficulty with ambulation on that side. No history of deep vein thrombosis or blood clots/clotting disorders reported by the patient. He asked several questions regarding the postoperative healing course, all of which I answered to the best of my ability. No new neurological deficits, the patient ambulates well and rises from a seated position without difficulty. His posterior incision site is well healing with a small scab overlying the incision. I would like to follow up with Kingsley again in 6 weeks for his 2nd postoperative visit. He understands that if his leg becomes more swollen, changes color, or becomes painful at all he should seek evaluation in urgent care/emergency department. For the time being I believe his leg swelling is likely simply related to his amlodipine prescription. Dany Gay MD,PhD [facility] Coding Level of Care Code Global (75412) Diagnoses Status post lumbar spine surgery for decompression of spinal cord Z98.890
== END 2025-02-21 13:56 | disposition home or self-care (01) ==
LOC: HO.HNS 12:55
PROVIDERS: PCP Internal Medicine; Visit Provider Physician Assistant
DX: Z98.890 Other specified postprocedural states (principal)
CPT/HCPCS: 99024

== ENCOUNTER → 2025-02-21 12:54 | Outpatient (BNVA) | payer MEDICARE, BC, SELFPAY | PROVIDERS: PCP Internal Medicine; Visit Provider Physician Assistant | DX: Z47.89 Encounter for other orthopedic aftercare (principal); M79.604 Pain in right leg; M79.18 Myalgia, other site; M79.89 Other specified soft tissue disorders; Z98.890 Other specified postprocedural states; Z79.899 Other long term (current) drug therapy | CPT/HCPCS: 99212 ==

== ENCOUNTER 2025-04-09 11:02 | Outpatient (AMB) | payer MEDICARE, BC, SELFPAY ==
--- NOTE | 2025-04-09 11:32 | HO.SPINEOV ---
Intake Visit Reasons: 2nd post op Intake Note: Mr. Yancey is here today for his 2nd post op. Rn Diabetes Educator Required: No Allergies No Known Allergies Allergy (Verified 02/12/25 09:17) Assessment & Plan Assessment & Plan (1) Status post lumbar spine surgery for decompression of spinal cord: Code(s): Z98.890 - Other specified postprocedural states Category: Medical Plan Procedure: Right L4-5 Laminotomy, Partial facetectomy and foraminotomy Shira comes in today for his 2nd postoperative visit after having a L4-5 lumbar decompression completed by Dr. Gay on 02/01/2025. To recap he was initially evaluated in clinic for bilateral lower extremity pain, right side worse than left. During his last office visit he reported that overall his right lower extremity pain was much better than it was prior to surgery, but reported that he had developed left-sided posterior buttocks pain since his operation. Unfortunately he reports that today his pain has essentially returned to what it was preoperatively. He does report that he has not been very active aside from walking around which she estimates to be about a mile a day. We discussed the postoperative healing course and I answered any questions that he had. No new neurological deficits, the patient ambulates well and rises from a seated position without difficulty. His posterior incision site is well healed. I discussed the continuum of care options with shira, including potentially sending him for a course of PT. He would like to increase his at home exercise first, and requested some medication to help with the pain for the time being. I will send in an Rx for Gabapentin and follow up with him again in 4 weeks. Dany Gay MD,PhD [facility] Medications: New gabapentin 300 mg PO BID 30 caps 0RF Coding Level of Care Code Global (23866) Diagnoses Status post lumbar spine surgery for decompression of spinal cord Z98.890
--- OUTSIDE RECORDS SUMMARY | 2025-04-09 13:30 | XMS_ITS | Clinical Summary ---
Author Organization [facility] Address [address] [place] [phone] Phone Care Team Providers Care Catcher Filter Tip Name Role Phone Otoniel Gusman MD Primary Care Provider [phone] Allergies Active Allergy Reactions Criticality Noted Date [...] 1 (one) time each day 30 tablet 12/20/2024 6 Active Active Problems Problem Noted Date Diagnosed Date Hypo-osmolality and hyponatremia 10/28/2021 Hypertension 10/28/2021 Allergic rhinitis 10/26/2017 History of pneumonia 10/26/2017 Overview (05/02/2024): Replacing diagnoses that were inactivated after the 05/02/24 Regulatory Import Asthma 06/11/2017 Chronic obstructive pulmonary disease 06/11/2017 Bronchiectasis 05/09/2017 Immunizations Immunization Administration Dates Next Due Influenza [...] Visit [facility] [address] [place] [address] Mesfin Sarah MD [address] [phone] Health Maintenance Due Date Last Done Comments Pneumococcal Vaccine: 50+ Years (1 of 2 - PCV) 1964 Influenza Vaccine (#1) 2025 2, 2020, 06/27/2019, Additional history exists Hepatitis B Vaccine Aged Out No longe r eligible based on patient's age to complete this topic Insurance Medicare [facility] Medicare [facility] Care Teams Catcher Filter Tip Relationship Specialty Start Date End Date Otoniel Gusman MD [address] [place] [address] PCP - General Internal Medicine 10/08/21
--- OUTSIDE RECORDS SUMMARY | 2025-04-09 13:31 | XMS_ITS | Clinical Summary ---
Author Organization [facility] Address [address] [address] Phone Care Team Providers Care Injection Moulding Machine Operator Name Role Phone Otoniel Gusman MD Primary Care Provider [phone] Allergies No known active allergies Medications celecoxib [...] 75+ series) 2020 BLOOD PRESSURE 05/26/2023 11/24/2022 INFLUENZA VACCINE (#1) 2025 , 2020, 06/27/2019, Additional history exists COVID-19 VACCINE ( - 2024- season) 2025 04/14/2022, 11/28/2021, 05/01/2021, Additional history exists HEPATITIS [...] file Insurance MEDICARE PART A & B [facility] MEDICARE PART A & B [facility] MEDICARE PART A & B [facility] MEDICARE PART A & B [facility] MEDICARE PART A & B [facility] MEDICARE PART A & B [employer] Member Subscriber Plan / Payer (Ef fective 2009-Present) Name:Kingsley Yancey Relation to Subscriber:Self Name:Kingsley Yancey Payer ID:[id number] (NAIC) Group ID:[id number] Type:PPO Address: [facility] [id number] [place] [id number] Care Teams Injection Moulding Machine Operator Relationship Specialty Start Date End Date Otoniel Gusman MD [address] [facility] [address] [place] [address] PCP - General Internal Medicine 11/24/22 Additional Source Comments The information contained in this document represents components of the legal health record. It is not the complete legal health record.[facility]
== END 2025-04-09 11:52 | disposition home or self-care (01) ==
LOC: HO.HNS 11:03
PROVIDERS: PCP Internal Medicine; Visit Provider Physician Assistant
DX: Z98.890 Other specified postprocedural states (principal)
CPT/HCPCS: 99024

== ENCOUNTER → 2025-04-09 11:02 | Outpatient (BNVA) | payer MEDICARE, BC, SELFPAY | PROVIDERS: PCP Internal Medicine; Visit Provider Physician Assistant | DX: M79.662 Pain in left lower leg (principal); M79.661 Pain in right lower leg; Z98.890 Other specified postprocedural states | CPT/HCPCS: 99212 ==

== ENCOUNTER 2025-05-07 11:13 | Outpatient (AMB) | payer MEDICARE, BC, SELFPAY ==
--- NOTE | 2025-05-07 11:39 | A.SPINEOV_ITS ---
Intake Visit Reasons: 1 month f/u Intake Note: Mr. Yancey is here for his 1 month F/u. Circular Gang Saw Operator Required: No Allergies No Known Allergies Allergy (Verified 02/12/25 09:17) Assessment & Plan Assessment & Plan (1) Status post lumbar spine surgery for decompression of spinal cord: Code(s): Z98.890 - Other specified postprocedural states Category: Surgical Plan Mr Yancey is here in follow-up. He underwent a right L4-5 laminotomy with excellent success of his right leg pain but has residual right-sided low back pain that is nagging and uncomfortable. He had it before surgery too. It is there when he stands and walks and goes away immediately when he sits down. I w ent back and looked at his MRI at [facility] [place] and his x-rays done here at [facility]. He has a significant dextroscoliosis with the apex at L3-4. He also has severe degenerative disc disease at multiple levels. My guess is what he is dealing with some pain referred from the altered dynamics of his spinal alignment, could be muscular or facet related. He is not at a point that he wants to consider doing fusion surgery and I think that is certainly reasonable considering that this pain has just uncomfortable but not disabling her crippling. I told him he should follow up with his pain management team and consider getting facet blocks, or median branch blocks. He also would like to try physical therapy again so I gave him a referral for that. I told him if he needs a new referral to pain management I can obliged him as well. He thinks he may have seen them in the last year so so he may just be able to call them and get an appointment. Total amount of time spent in this visit was 20 minutes in discussion of symptoms, lumbar imaging results and subsequent plan of care Nick Gay MD,PhD [facility] Orders: Orders PT Evaluation and Treatment Today Z98.890 - Other specified postprocedural states Coding Level of Care Code Est Pt Level 3 (48586) Diagnoses Status post lumbar spine surgery for decompression of spinal cord Z98.890
--- OUTSIDE RECORDS SUMMARY | 2025-05-07 13:47 | XMS_ITS | Clinical Summary ---
Author Organization [facility] Address [address] [place] [phone] Phone Care Team Providers Care Skiver Box Toe Name Role Phone Otoniel Gusman MD Primary Care Provider [phone] Allergies Active Allergy Reactions Criticality Noted [...] Take with meals. 60 tablet 11 12/20/2024 Active amLODIPine (NORVASC) 5 MG tablet Take [...] Visit [facility] [address] [place] [address] Mesfin Sarah MD [address] [phone] Health Maintenance Due Date Last Done Comments Pneumococcal Vaccine: 50+ Years (1 of 2 - PCV) 1964 Influenza Vaccine (#1) 2025 2, 2020, 06/27/2019, Additional history exists Hepatitis B Vaccine Aged Out No longe r eligible based on patient's age to complete this topic Insurance Medicare [facility] Medicare [facility] Care Teams Skiver Box Toe Relationship Specialty Start Date End Date Otoniel Gusman MD [address] [place] [address] PCP - General Internal Medicine 10/08/21
--- OUTSIDE RECORDS SUMMARY | 2025-05-07 13:49 | XMS_ITS | Clinical Summary ---
Author Organization [facility] Address [address] [address] Phone Care Team Providers Care Experimental Mechanic Electrical Name Role Phone Otoniel Gusman MD Primary Care Provider [phone] Allergies No known active allergies Medications celecoxib [...] file Insurance MEDICARE PART A & B [employer] [facility] MEDICARE PART A & B [facility] MEDICARE PART A & B [facility] MEDICARE PART A & B [facility] MEDICARE PART A & B [facility] MEDICARE PART A & B [employer] Member Subscriber Plan / Payer (Ef fective 2009-Present) Name:Kingsley Yancey Relation to Subscriber:Self Name:Kingsley Yancey Payer ID:[id number] (NAIC) Group ID:[id number] Type:PPO Address: [facility] [id number] [place] [id number] Care Teams Experimental Mechanic Electrical Relationship Specialty Start Date End Date Otoniel Gusman MD [address] [facility] [address] [place] [address] PCP - General Internal Medicine 11/24/22 Additional Source Comments The information contained in this document represents components of the legal health record. It is not the complete legal health record.[facility]
== END 2025-05-07 12:32 | disposition home or self-care (01) ==
LOC: HO.HNS 11:14
PROVIDERS: PCP Internal Medicine; Visit Provider Physician Assistant
DX: Z98.890 Other specified postprocedural states (principal)
CPT/HCPCS: 99213

== ENCOUNTER → 2025-05-07 11:13 | Outpatient (BNVA) | payer MEDICARE, BC, SELFPAY | PROVIDERS: PCP Internal Medicine; Visit Provider Physician Assistant | DX: Z98.890 Other specified postprocedural states (principal) | CPT/HCPCS: 99212 ==